=== PATIENT | female | born 1980 | race Caucasian/White ===

== ENCOUNTER 2024-05-07 12:18 | Emergency (ER) | payer OTHER, SELFPAY ==
[2024-05-07 12:33] VITALS: BP 121/81; PULSE 70; RESP 18; TEMP 36.6; O2SAT 100
--- NOTE | 2024-05-07 12:48 | ED.SKABFB ---
HPI - Skin/Abscess/Foreign Bdy General Chief complaint: Skin/Abscess/Foreign Body Stated complaint: Right arm bite itching and burning Source: patient Mode of arrival: ambulatory Limitations: no limitations History of Present Illness HPI narrative: 43-year-old female presented for complaint of itchy red rash to the right arm for about 3 days. States this started after working in her yard, and believes it was mosquito bites. Started as 3 small round red dots which is spread to the inner elbow. she has been using ANEL dry. Denies lip, tongue, or throat swelling, shortness of breath or wheezing. Denies changes to soap, detergent, lotion, or any other exposures. No one else in the house or any contacts with similar symptoms. Related Data Home Medications Medication Instructions Recorded Confirmed atorvastatin 40 mg tablet mg 05/07/24 clonazepam 0.5 mg tablet mg 05/07/24 estradiol 1 mg tablet mg 05/07/24 galcanezumab-gnlm 120 mg/mL mg subcut 05/07/24 subcutaneous pen injector (Emgality Pen) topiramate 100 mg capsule,extended mg PO 05/07/24 release 24 hr venlafaxine 150 mg mg PO 05/07/24 capsule,extended release 24 hr Allergies Allergy/AdvReac Type Severity Reaction Status Date / Time No Known Allergies Allergy Unverified 05/07/24 12:51 Review of Systems Review of Systems: CONSTITUTIONAL: Denies body aches, fever, chills, or sweats. EYES: Denies visual changes, redness, or discharge. ENT: Denies rhinorrhea, congestion CARDIOVASCULAR: Denies chest pain, palpitations, or edema. RESPIRATORY: Denies cough or dyspnea. GASTROINTESTINAL: Denies abdominal pain, nausea, vomiting, or diarrhea. SKIN: per HPI MUSCULOSKELETAL: Denies back pain, joint pain, or myalgia. NEUROLOGIC: Denies headache, numbness, tingling, or weakness. PMFSH Comments At time of signature, I have reviewed and agree with nursing past medical, surgical, social and family history unless otherwise noted. Please see nursing chart for further information. There is no relevant family history pertinent to the presenting complaint Exam Narrative: GENERAL: Well-appearing EYES: conjunctivae clear, and EOMI. ENT: Mucous membranes moist. Oropharynx without edema, erythema or lesions. NECK: Supple. No lymphadenopathy CHEST: Clear to auscultation. HEART: Regular rate and rhythm. SKIN: Warm, dry. right AC area approximately 5 cm diameter area of erythema, dry center with pinpoint scabs, medial aspect with dried vesicles. Nontender, no drainage or fluctuance. NEURO: Alert and oriented x3. Course Course Emergency Course: Patient is aware of diagnosis, understands and agrees to treatment plan. Anticipatory guidance given. Patient agrees to follow-up as directed and is aware of reasons to seek care at the emergency department. Portions of this record may have been created with voice recognition software Level of Care: Express Care Visit Vital Signs Vital signs: Vital Signs Temperature 97.9 F 05/07/24 12:33 Pulse Rate 70 05/07/24 12:33 Respiratory Rate 18 05/07/24 12:33 Blood Pressure 121/81 05/07/24 12:33 Pulse Oximetry 100 05/07/24 12:33 Oxygen Delivery Room Air 05/07/24 12:33 Temperature 97.9 F 05/07/24 12:33 Pulse Rate 70 05/07/24 12:33 Respiratory Rate 18 05/07/24 12:33 Blood Pressure 121/81 05/07/24 12:33 Pulse Oximetry 100 05/07/24 12:33 Oxygen Delivery Room Air 05/07/24 12:33 Reviewed MDM - Skin/Abscess/Foreign Bdy MDM Narrative Medical decision making narrative: Discussed physical exam findings c/w dermatitis, will also provide abx.. Advised supportive measures and signs/symptoms to go to the ER. Pt is appropriate for outpt treatment and f/u. Instructed patient to go to nearest ER immediately for any worsening symptoms including but not limited to: fever, spreading rash, pain, sore throat, headache, dizziness, chest pain, trouble breathing, or any symptoms c
== END 2024-05-07 12:55 | disposition home or self-care (01) ==
PROVIDERS: Emergency Provider Nurse Practitioner Family; PCP Nurse Practitioner Family
DX: L30.9 Dermatitis, unspecified (principal)
CPT/HCPCS: 99203; G0463